=== PATIENT | female | born 1965 | race Caucasian/White ===

== ENCOUNTER 2016-08-22 17:07 | Emergency (ER) | payer SELFPAY ==
[~2016-08-22] VITALS: Ht 154.9 cm; Wt 72.7 kg
[2016-08-22 17:09] VITALS: TEMP 97.3
[2016-08-22] MEDS ORDERED: PERCOCET 325 MG1 TA2 PO (18:02)
[2016-08-22 18:51] VITALS: BP 107/75; PULSE 82
== END 2016-08-22 19:14 | disposition home or self-care (01) ==
LOC: COL.ER 17:07
DX: S53.124A Posterior dislocation of right ulnohumeral joint, initial encounter (principal); S42.491A Other displaced fracture of lower end of right humerus, initial encounter for closed fracture; W01.10XA Fall on same level from slipping, tripping and stumbling with subsequent striking against unspecified object, initial encounter; Y92.414 Local residential or business street as the place of occurrence of the external cause
CPT/HCPCS: J1170; J2704

== ENCOUNTER → 2016-08-23 | Outpatient (CLI) | payer SELFPAY ==
[~2016-08-23] MED LIST: PERCOCET 325 MG1 TA2 PO
== END ==
LOC: COL.RAD 14:53
DX: S52.041A Displaced fracture of coronoid process of right ulna, initial encounter for closed fracture (principal); M25.821 Other specified joint disorders, right elbow; Z98.890 Other specified postprocedural states